=== PATIENT | female | born 1945 | race Caucasian/White ===

== ENCOUNTER 2023-06-08 06:24 | Observation (INO) ==
[~2023-06-08 06:24] MED LIST: Metoclopramide 5 MG/ML VIAL (10 mg) IV PRN; NS 0.45% 1000 ml BAG 1,000 ML IV SCH; Naloxone 0.4 mg VIAL 0.4 mg/ml 1 ml VIAL IV PRN; Ondansetron 4 mg VIAL 2 MG/ML 2 ml VIAL IV PRN; fentaNYL 100 mcg/2 ml 50 MCG/ML VIAL IV PRN
[2023-06-08] MEDS ORDERED: Sevoflurane BOTTLE ONE (07:00)
[2023-06-08] MEDS ORDERED: Glycopyrrolate IV 0.2 MG/ML 1 ML VIAL ONE (07:00)
[2023-06-08] MEDS ORDERED: Lidocaine 2% PF 5 ML VIAL ONE ×2 (07:00→08:17)
[2023-06-08] MEDS ORDERED: Phenylephrine IV 10 MG/ML 1 ml VIAL ONE (07:00)
[2023-06-08 07:10] LABS: Rapid COVID-19 Molecular Undetected (Undetected)
[2023-06-08] MEDS ORDERED: Scopolamine 1 mg/72hr PATCH ONE (07:18)
[2023-06-08] MEDS ORDERED: Tranexamic Acid 1 GM/100ML BAG 2,000 MG/200 ML BAG IV ONE (07:18)
[2023-06-08] MEDS ORDERED: ceFAZolin 2 GM in NS PREMIX 2 GM/100 ML BAG IVPB ONE (07:19)
[2023-06-08] MEDS: Scopolamine 1 mg/72hr PATCH TRANSDERM ONE (07:39)
[2023-06-08] MEDS ORDERED: Ondansetron 4 mg VIAL 2 MG/ML 2 ml VIAL IV PRN (08:08)
[2023-06-08] MEDS ORDERED: Naloxone 0.4 mg VIAL 0.4 mg/ml 1 ml VIAL IV PRN (08:08)
[2023-06-08] MEDS ORDERED: fentaNYL 100 mcg/2 ml 50 MCG/ML VIAL IV PRN (08:08)
[2023-06-08] MEDS ORDERED: Propofol 10 MG/ML 20 ML BTL ONE ×2 (08:17→08:18)
[2023-06-08] MEDS ORDERED: Dexamethasone IV 4 MG/ML VIAL 1 ml VIAL ONE ×2 (09:10→10:52)
[2023-06-08] MEDS ORDERED: ROPIVACAINE 5 MG/ML 30 ML BTL (0.5%) ONE (09:37)
[2023-06-08] MEDS ORDERED: fentaNYL 100 mcg/2 ml 50 MCG/ML VIAL ONE (09:58)
[2023-06-08] MEDS ORDERED: fentaNYL 250 mcg/5 ml 50 MCG/ML 5 ml VIAL (250 MCG) ONE (10:00)
[2023-06-08] MEDS ORDERED: Vancomycin 1,000 MG VIAL ONE (10:01)
[2023-06-08] MEDS ORDERED: Rocuronium 50 mg VIAL 10 mg/ml 5 ml VIAL (50 mg) ONE ×2 (10:01)
[2023-06-08] MEDS ORDERED: Bupivacaine 0.5% 50 ML MDV VIAL ONE (10:02)
[2023-06-08] MEDS ORDERED: Ondansetron 4 mg VIAL 2 MG/ML 2 ml VIAL ONE (10:52)
[2023-06-08] MEDS ORDERED: Esmolol 10 MG/ML 10 ML (100 mg) IV ONE (10:53)
[2023-06-08] MEDS ORDERED: HYDROmorphone 0.5 MG/0.5 ML SYRINGE ONE (11:15)
[2023-06-08] MEDS ORDERED: Lactulose 30 ml UDC PO PRN (14:17)
[2023-06-08] MEDS ORDERED: Magnesium Hydroxide LIQ 30 ML UDC PO PRN (14:17)
[2023-06-08] MEDS ORDERED: Morphine 2 MG/ML SYRINGE IV PRN (14:17)
[2023-06-08] MEDS: Lactated Ringers 1000 ml BAG 1,000 ML IV SCH ×2 (16:34→19:44)
[2023-06-08] MEDS: ceFAZolin 1 GM ADVAN 1 GM in NS 0.9% 50 ML 50 ML IVPB SCH (17:33)
[2023-06-08] MEDS: Acetaminophen IV 1 GM/100ML 1,000 MG/100 ML BAG IV ONE (19:45)
[2023-06-08] MEDS: Buffered Lidocaine 1% SYRIN 1 ml INTRADERM ONE (19:45)
[2023-06-08] MEDS: Magnesium Hydroxide LIQ 30 ML UDC PO SCH (21:40)
[2023-06-08] MEDS: Ondansetron ODT 4 mg TAB 4 MG TAB PO PRN (21:40)
[2023-06-09] MEDS: Ondansetron 4 mg VIAL 2 MG/ML 2 ml VIAL IV PRN (02:14)
[2023-06-09 06:21] LABS: Hematocrit 24.7 % (35-45); Hemoglobin 8.5 g/dL (11.5-14.3); Platelet Count 211 10^3/uL (150-450)
[2023-06-09 06:58] LABS: Creatinine, Serum 0.63 mg/dL (0.51-0.95); Potassium 4.3 mmol/L (3.5-5.0); eGFR CKD-EPI 90.2 (>60)
[2023-06-09] MEDS: Vitamin THERAPEUTIC TAB PO SCH (08:19)
[2023-06-09 12:10] VITALS: BP 120/70
== END 2023-06-09 15:15 | disposition home or self-care (01) ==
LOC: SSU 06:24 → OR 06:24
PROVIDERS: ADMIT Orthopaedic Surgery; ATTEND Orthopaedic Surgery